=== PATIENT | female | born 1985 | race Caucasian/White ===

== ENCOUNTER 2017-10-14 19:18 | Emergency (ER) | payer BC ==
[2017-10-14] MEDS ORDERED: Ketorolac 60 MG/2 ML SDV ONE (20:11)
--- NOTE | 2017-10-15 13:05 | CT ---
EXAM DATE: 10/14/17 PATIENT'S AGE: 31 Patient: MILLY MACDONALD Facility: [place], [place] Site . Site : 1985 Study: CT Spine Cervical [id number]/7/2018 7:52:22 PM Ordering Physician: Seb Beckford NP Final Report: Bucked from horse posterior headache neck pain prior injury to right clavicle. TECHNIQUE: Cervical spine CT scan. Coronal sagittal reformat images obtained. Findings: There is normal height and alignment of the cervical vertebral bodies. Lateral masses align normally C2. Old right clavicular fracture. Mucosal thickening ethmoid air cells. There is no acute cervical vertebral body fracture. The prevertebral soft tissues are within normal limits. IMPRESSION: 1. No acute cervical vertebral body fracture or subluxation. Please note that all CT scans at this facility use dose modulation, iterative reconstruction, and/or weight-based dosing when appropriate to reduce radiation dose to as low as reasonably achievable. Dictated by Lashaun Willett MD @ Oct 14 2017 7:56PM (Electronic Signature) Report Signed by Proxy. [facility]
--- NOTE | 2017-10-15 13:05 | CT ---
EXAM DATE: 10/14/17 PATIENT'S AGE: 31 Patient: MILLY MACDONALD Facility: [place], [place] Site . Site : 1985 Study: CT Head [id number]/7/2018 8:00:49 PM Ordering Physician: Seb Beckford NP Final Report: Bucked from horse Technique noncontrast head CT scan. No comparison studies are available. FINDINGS: Axial noncontrast images through the brain parenchyma demonstrates no acute intracranial hemorrhage or mass. No midline shift. No abnormal extra-axial air fluid collections. Probable prominent perivascular space in the region of the left basal ganglia. No mass or midline shift. No abnormal extra-axial air or fluid collections. Visualized paranasal sinuses demonstrate mucosal thickening of the left maxillary sinus and ethmoid air cells. The remainder the paranasal sinuses, mastoid air cells skull scalp otherwise appears unremarkable. IMPRESSION: No acute intracranial hemorrhage or mass. Please note that all CT scans at this facility use dose modulation, iterative reconstruction, and/or weight-based dosing when appropriate to reduce radiation dose to as low as reasonably achievable. Dictated by Lashaun Willett MD @ Oct 14 2017 8:06PM (Electronic Signature) Report Signed by Proxy. KATHI
--- NOTE | 2017-10-15 13:07 | CR ---
EXAM DATE: 10/14/17 PATIENT'S AGE: 31 Patient: MILLY MACDONALD Facility: [place], [place] Site . Site : 1985 Study: XRay Chest [id number]/7/2018 8:03:24 PM Ordering Physician: Seb Beckford NP Final Report: Bucked from horse technique PA and lateral chest. FINDINGS: Normal cardiac and mediastinal silhouette. Old right clavicular fracture. No acute airspace or interstitial process. No effusion or pneumothorax. IMPRESSION: 1. No acute pulmonary process. Dictated by Lashaun Willett MD @ Oct 14 2017 8:11PM (Electronic Signature) Report Signed by Proxy. KATHI
--- NOTE | 2017-10-15 13:07 | CR ---
EXAM DATE: 10/14/17 PATIENT'S AGE: 31 Patient: MILLY MACDONALD Facility: [place], [place] Site . Site : 1985 Study: XRay Shoulder Right [id number]/7/2018 8:02:38 PM Ordering Physician: Seb Beckford NP Final Report: Bucked from horse 2 views of the right shoulder. FINDINGS: Normal articulation of the glenohumeral joint. No fractures or dislocation. Old right mid clavicular fracture. Dictated by Lashaun Willett MD @ Oct 14 2017 8:13PM (Electronic Signature) Report Signed by Proxy. KATHI
== END 2017-10-14 21:00 | disposition home or self-care (01) ==
LOC: MW.ED 19:18
DX: S49.91XA Unspecified injury of right shoulder and upper arm, initial encounter (principal); V80.010A Animal-rider injured by fall from or being thrown from horse in noncollision accident, initial encounter; Y92.89 Other specified places as the place of occurrence of the external cause
CPT/HCPCS: 36415; 70450; 70450-26; 71046; 71046-26; 72125; 72125-26; 73030-26-RT; 73030-RT; 80053; 85025; 96372; 99284-25